=== PATIENT | female | born 1960 | race Caucasian/White ===

== ENCOUNTER 2017-07-01 12:40 | Outpatient (CLI) | payer MEDICARE ==
--- NOTE | 2017-07-01 14:20 | RAD ---
TWO VIEWS CHEST: History: Dyspnea. Comparison: 04-27-15 FINDINGS: Normal cardiac silhouette. The pulmonary vessels and hilum are normal. Costophrenic angles are clear. Lungs are hyperinflated. Chronic changes, without consolidation or mass. No pneumothorax or osseous abnormality. IMPRESSION: No acute cardiopulmonary process. POS: [facility]
== END 2017-07-01 12:41 | disposition home or self-care (01) ==
LOC: RAD 12:40
PROVIDERS: ATTEND Internal Medicine Pulmonary Disease
DX: R06.00 Dyspnea, unspecified (principal)
CPT/HCPCS: 71046

== ENCOUNTER 2018-10-14 12:02 | Outpatient (CLI) | payer MEDICARE ==
--- NOTE | 2018-10-14 14:11 | RAD ---
PA AND LATERAL VIEWS CHEST: HISTORY: Dyspnea. FINDINGS: Comparison is made with the exam of 07/01/2017. The heart size is borderline. The aorta is tortuous. The lungs are expanded without lobar consolida tion, pneumothoraces, or pleural effusions. Mild chronic changes are again seen. No acute osseous a bnormalities are noted. IMPRESSION: No acute process. POS: [facility]
== END 2018-10-14 12:03 | disposition home or self-care (01) ==
LOC: RAD 12:02
PROVIDERS: ATTEND Internal Medicine Pulmonary Disease
DX: R06.00 Dyspnea, unspecified (principal)
CPT/HCPCS: 71046